=== PATIENT | male | born 1975 | race Two or more races ===

== ENCOUNTER 2021-03-10 00:56 | Emergency (ER) | payer OTHER ==
[~2021-03-10] VITALS: Ht 152.4 cm; Wt 56.7 kg
[2021-03-10] MEDS ORDERED: FAMOTIDINE 20 MG/2 ML VIAL IV STA (01:41)
[2021-03-10] MEDS ORDERED: MORPHINE SULFATE INJ 4 MG/ML INJ 1ML IV STA (01:53)
[2021-03-10] MEDS ORDERED: ONDANSETRON HCL INJ 2MG/ML 2ML 2 MG/ML VIAL IV STA (01:53)
[2021-03-10] MEDS ORDERED: SODIUM CHLORIDE 0.9% 50ML 50 ML ONE (02:01)
[2021-03-10] MEDS ORDERED: IOPAMIDOL 370 MG/ML 200 ML INFUS..BTL INJ ONE (02:01)
[2021-03-10] MEDS ORDERED: FAMOTIDINE 20 MG/2 ML VIAL IV ONE (02:05)
[2021-03-10] MEDS ORDERED: ONDANSETRON HCL INJ 2MG/ML 2ML 2 MG/ML VIAL ONE (02:05)
[2021-03-10] MEDS ORDERED: MORPHINE SULFATE INJ 4 MG/ML INJ 1ML ONE (02:05)
== END 2021-03-10 04:08 | disposition home or self-care (01) ==
LOC: FSED 01:35
DX: R10.33 Periumbilical pain (principal); K80.20 Calculus of gallbladder without cholecystitis without obstruction; K76.0 Fatty (change of) liver, not elsewhere classified; N28.1 Cyst of kidney, acquired
CPT/HCPCS: 74177; 80048; 80076; 81003; 85025; 99284; J2270; J2405; Q9967